=== PATIENT | female | born 1940 | race Caucasian/White ===

== ENCOUNTER → 2016-09-09 | Outpatient (CLI) | payer MEDICARE, OTHER | END | disposition home or self-care (01) | LOC: GMAJ 14:34 | PROVIDERS: ATTEND Family Medicine | DX: E03.9 Hypothyroidism, unspecified (principal) ==

== ENCOUNTER → 2017-03-20 | Outpatient (CLI) | payer MEDICARE, OTHER | END | disposition home or self-care (01) | LOC: GMAJ 19:21 | PROVIDERS: ATTEND Family Medicine | DX: N39.0 Urinary tract infection, site not specified (principal) ==

== ENCOUNTER → 2017-10-23 | Outpatient (CLI) | payer MEDICARE, OTHER | LOC: GMAJ 15:40 | PROVIDERS: ATTEND Family Medicine | DX: E03.9 Hypothyroidism, unspecified (principal) ==

== ENCOUNTER 2019-02-28 19:33 | Emergency (ER) | payer MEDICARE, OTHER ==
[2019-02-28] MEDS ORDERED: ACETAMINOPHEN 325 MG TAB PO ONE (20:36)
--- NOTE | 2019-02-28 20:41 | ED.PDOC ---
History of Present Illness - General Chief Complaint: Trauma Stated Complaint: fell on concrete, large abrasion to head Time Seen by Provider: 02/28/19 20:26 Source: patient, family Additional Information: Beulah Lima is a 78-year-old female who presents to the ED with chief complaint of fall. Patient has a history of [place]'s disease and had just seen her neurologist today for her semiannual visit. Patient is on medication and her symptoms are well controlled. Patient was walking up the [employer] steps and patient's son heard a fall and found patient on the ground. Patient was dazed but was conscious upon son's arrival. Per son, patient has a baseline unsteady gait and has a history of recent falls but her ambulation in general is good enough such that she does not use a walker. Patient is not on a blood thinner. Patient complains of a mild headache at the point of contusion to her scalp. She also indicates she has mild dizziness. Patient denies any neck pain, chest pain, shortness of breath, abdominal pain, back pain. She also denies nausea, vomiting, fever. Patient indicates she is feeling back to normal here in the ED. There are no other complaints at this time. - History of Present Illness Allergies/Adverse Reactions: Allergies Sulfa Antibiotics Allergy (Verified 02/28/19 20:11) Review of Systems - Review of Systems Constitutional: States: no symptoms reported. Denies: chills, fever EENTM: States: no symptoms reported. Denies: double vision Respiratory: States: no symptoms reported. Denies: cough, short of breath Cardiology: States: no symptoms reported. Denies: chest pain, palpitations Gastrointestinal/Abdominal: States: no symptoms reported. Denies: abdominal pain, vomiting Genitourinary: States: no symptoms reported. Denies: dysuria Musculoskeletal: States: no symptoms reported. Denies: joint pain, muscle pain, muscle stiffness Skin: States: no symptoms reported Neurological: States: headache. Denies: paresthesia, weakness Endocrine: States: no symptoms reported Hematologic/Lymphatic: States: no symptoms reported All other Systems: Reviewed and Negative Family Medical History - Family History Mother Family History: Unknown Physical Exam - Physical Exam General Appearance: Alert, Comfortable, Frail, No apparent distress Head Injury: other - there is a small hematoma to the right occipitoparietal region with a central 1 cm laceration. Eye Exam: bilateral normal ENT Exam: no evidence of ENT injury, no dental injury Neck Exam: non-tender, normal inspection, other - egative cervical vertebral tenderness to palpation Cardiovascular/Respiratory: regular rate, rhythm, no M/R/G, normal peripheral pulses Gastrointestinal/Abdominal: normal bowel sounds, non tender, soft, no organomegaly, no pulsatile mass Back Exam: normal inspection, no CVA tenderness, no vertebral tenderness Extremity Exam: no evidence of injury, normal range of motion, non-tender Neurologic: cycle specialist II-XII nml as tested, no motor/sensory deficits, alert, normal mood/affect, oriented x 3 Skin Exam: normal color, warm/dry Progress - Progress Progress: 02/28/19 20:44 Differential diagnosis includes but is not limited to closed head injury, ICH, generalized weakness, UTI 02/28/19 20:44 I have discussed care wishes with patient and son and they indicate that they would prefer that patient not be admitted to the hospital if her trauma workup is unremarkable. Patient has baseline balance issues and both patient and son believe that her symptoms are related to balance. 02/28/19 22:[address] head has resulted and shows a small traumatic subdural hematoma without mass effect or shift. Patient's neuro exam is completely normal, she is a GCS 15 and is awake and lucid. Her INR is 0.96. And arranging for transport to [facility] for neurosurgical management. EKG read: NSR, rate 69, nl axis, nl QRS, nl ST segments, nl T waves. Negative STEMI. EKG read by Zac Sullivan MD. 02/28/19 22:12 I have spoken with the on-call neurosurgeon Dr. Ellis at [facility] and with the ED physician, Dr. Arriaza as well. They accept patient ED to ED transfer for management of her subdural hematoma. Patient is stable and safe for transfer at this time. 02/28/19 22:16 Procedures - Laceration/Wound Repair Occipital Wound's Depth, Shape: linear Wound Explored: clean Irrigated w/ Saline (cc's): 30 Betadine Prep?: Yes Wound Repaired With: chastity - 3 Departure - Departure Clinical Impression: Subdural hematoma Occipital scalp laceration Qualifiers: Encounter type: initial encounter Qualified Code(s): S01.01XA - Laceration without foreign body of scalp, initial encounter Time of Disposition: 22:13 Disposition: Transfer to Hospital Condition: Fair Referrals: Eren Sullivan MD [Primary Care Provider] - 1-2 Weeks Transfer to Outside Facility - Transfer Information Decision to Transfer Date: 02/28/19 Decision to Transfer Time: 22:14 Reason for Transfer: specialized care not available Accepting Provider:: Dr. Arriaza Accepting Facility: [facility]
--- NOTE | 2019-02-28 21:52 | CT ---
EXAM DESCRIPTION: Cervical Spine CLINICAL HISTORY: 78 years Female fall, head injury TECHNIQUE: Noncontrast cervical spine CT with sagittal and coronal reconstructions. All CT scans at this facility use dose modulation, iterative reconstruction, and/or weight based dosing when appropriate to reduce radiation dose to as low as reasonably achievable. COMPARISON: None FINDINGS: No acute fracture. Alignment is anatomic. Multilevel degenerative changes. No high-grade spinal canal stenosis. Soft tissues are unremarkable. Emphysematous changes of the lungs. IMPRESSION: No acute findings. Electronically signed by: Uriel George MD 02/28/2019 9:51 PM CDT
--- NOTE | 2019-02-28 21:52 | CT ---
EXAM DESCRIPTION: Head CLINICAL HISTORY: 78 years Female [facility] TECHNIQUE: Axial noncontrast CT head with coronal and sagittal reformats. All CT scans at this facility use dose modulation, iterative reconstruction, and/or weight based dosing when appropriate to reduce radiation dose to as low as reasonably achievable. COMPARISON: None. FINDINGS: Right frontotemporal hyperdensity measuring 3 mm in greatest thickness. Diffuse parenchymal volume loss. Chronic small vessel disease. 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 Small remote infarct in the right cerebellar hemisphere. No midline shift, mass or mass effect. No obvious large territorial infarction. Status post bilateral cataract surgeries. Paranasal sinuses and mastoid air cells are clear. Left posterior parietal scalp soft tissue swelling, laceration with subcutaneous gas. No acute fracture. IMPRESSION: 1. Right frontotemporal acute subdural hemorrhage measuring 3 mm in greatest thickness. No midline shift or herniation. 2. Left posterior parietal scalp soft tissue swelling, laceration with subcutaneous gas. 3. No acute fracture. Critical conference call requested. Electronically signed by: Uriel George MD 02/28/2019 9:50 PM CDT
--- NOTE | 2019-02-28 21:57 | RAD ---
EXAM DESCRIPTION: Chest,1 View CLINICAL HISTORY: 78 years Female, syncope COMPARISON: None. FINDINGS: Cardiomediastinal silhouette is normal. No focal consolidation, pneumothorax or pleural effusion. Degenerative changes. IMPRESSION: No acute findings. Electronically signed by: Uriel George MD 02/28/2019 9:55 PM CDT
[2019-02-28 22:29] VITALS: BP 163/93; TEMP 98.3; O2SAT 99
--- NOTE | 2019-02-28 23:20 | RAD ---
EXAM DESCRIPTION: Hip, left 2 Views CLINICAL HISTORY: 78 years Female fall COMPARISON: None. TECHNIQUE: Two views of the left hip. FINDINGS: There is a mildly impacted left femur neck fracture. The hip is not dislocated. No other fractures are identified. IMPRESSION: There is a mildly impacted left femur neck fracture. Electronically signed by: Manny Dia MD 02/28/2019 11:18 PM CDT
== END 2019-02-28 23:15 | disposition short-term general hospital (02) ==
LOC: ER 19:33
DX: S06.5X0A Traumatic subdural hemorrhage without loss of consciousness, initial encounter (principal); S01.01XA Laceration without foreign body of scalp, initial encounter; S72.002A Fracture of unspecified part of neck of left femur, initial encounter for closed fracture; M47.812 Spondylosis without myelopathy or radiculopathy, cervical region; G10 Huntington's disease; W10.9XXA Fall (on) (from) unspecified stairs and steps, initial encounter; Y92.89 Other specified places as the place of occurrence of the external cause; Z88.2 Allergy status to sulfonamides; W06.XXXA Fall from bed, initial encounter; Y92.239 Unspecified place in hospital as the place of occurrence of the external cause

== ENCOUNTER → 2019-09-27 | Outpatient (CLI) | payer MEDICARE, OTHER | LOC: BFHH 12:24 | PROVIDERS: ATTEND Family Medicine | DX: G10 Huntington's disease (principal); N39.0 Urinary tract infection, site not specified; E03.9 Hypothyroidism, unspecified; Z79.899 Other long term (current) drug therapy ==